=== PATIENT | male | born 1980 | race Caucasian/White ===

== ENCOUNTER 2017-09-18 11:34 | Emergency (ER) | END 2017-09-18 15:00 | disposition home or self-care (01) ==

== ENCOUNTER 2017-09-20 06:53 | Emergency (ER) | END 2017-09-20 07:32 | disposition home or self-care (01) ==

== ENCOUNTER 2017-09-28 07:36 | Emergency (ER) | END 2017-09-28 08:39 | disposition home or self-care (01) ==